=== PATIENT | female | born 1995 | race American Indian/Alaskan Native ===

== ENCOUNTER 2020-04-13 20:05 | Emergency (ER) | payer SELFPAY ==
[~2020-04-13] VITALS: Ht 170.2 cm; Wt 63.5 kg
[2020-04-13 20:10] VITALS: BP 148/84
--- NOTE | 2020-04-13 20:21 | NUR ---
PATIENT CAME TO ER BED 9 C/O " I HAD 14 DRINK OF ALCHOLIC SHOTS, I KEEP BLACKING OUT AND I DON'T KNOW WHY." PATIENT OFFERED REFERRAL TO ALCOHOLIC ANONYMOUS AND OTHER, BUT REFUSED. AAOX4. NO SOB. BREATHING EVENLY AND UNLABORED ON ROOM AIR.
[2020-04-13] MEDS ORDERED: ONDANSETRON 4 MG TAB.RAPDIS ONE (20:25)
[2020-04-13] MEDS ORDERED: ONDANSETRON 4 MG TAB.RAPDIS PO ONE (20:30)
--- NOTE | 2020-04-13 20:33 | NUR ---
Patient discharged to home in stable condition. Written and verbal after care instructions given. Patient verbalizes understanding of instruction.
== END 2020-04-13 20:33 | disposition home or self-care (01) ==
LOC: ER 20:11
DX: R11.2 Nausea with vomiting, unspecified (principal); F45.8 Other somatoform disorders; F10.10 Alcohol abuse, uncomplicated; D64.9 Anemia, unspecified; Z90.89 Acquired absence of other organs; Z98.890 Other specified postprocedural states; Y90.9 Presence of alcohol in blood, level not specified
CPT/HCPCS: 99283; Q0162